=== PATIENT | female | born 1940 | race Caucasian/White ===

== ENCOUNTER 2018-01-08 13:45 | Inpatient (IN) | payer OTHER ==
[~2018-01-08] VITALS: Ht 152.4 cm; Wt 56.7 kg
[2018-01-08] MEDS ORDERED: NEURONTIN800 MG PO (15:15)
[2018-01-08] MEDS ORDERED: NIFE60TA3 PO (15:15)
[2018-01-08] MEDS ORDERED: XANAX1 MG PO (15:16)
[2018-01-08] MEDS ORDERED: TROMBONEX CAPS1 EACH PO (15:16)
[2018-01-08] MEDS ORDERED: CRESTOR10 MG PO (15:17)
[2018-01-08] MEDS ORDERED: ASA325 MG PO (15:17)
[2018-01-08] MEDS ORDERED: HYDROCHLOROTHIA25 MG PO (15:17)
[2018-01-08] MEDS ORDERED: PROTONIX40 MG PO (15:18)
[2018-01-08] MEDS ORDERED: PROLIA60 MG/1 ML (15:18)
[2018-01-20] MEDS ORDERED: DOCUSATE SODIU100 MG PO (09:31)
[2018-01-20] MEDS ORDERED: PERCOCET 5-3251 EACH PO (09:32)
[2018-01-20] MEDS ORDERED: XANAX1 MG PO (09:32)
== END 2018-01-20 13:07 | disposition home or self-care (01) | DRG 454 ==
LOC: O/R 01-19 04:40 → PED 01-19 04:40 → O/R 01-19 07:00 → PED 01-19 11:09 → O/R 01-19 13:45 → SURH 01-19 13:45 → PED 01-20 13:07
PROVIDERS: Orthopaedic Surgery Orthopaedic Surgery of the Spine
PROC: 0RG2071 Fusion of 2 or more Cervical Vertebral Joints with Autologous Tissue Substitute, Posterior Approach, Posterior Column, Open Approach (ICD-10-PCS; 2018-01-19)
PROC: 0RT30ZZ Resection of Cervical Vertebral Disc, Open Approach (ICD-10-PCS; 2018-01-19)
PROC: 07DS3ZZ Extraction of Vertebral Bone Marrow, Percutaneous Approach (ICD-10-PCS; 2018-01-19)
PROC: 0RG20A0 Fusion of 2 or more Cervical Vertebral Joints with Interbody Fusion Device, Anterior Approach, Anterior Column, Open Approach (ICD-10-PCS; principal; 2018-01-19 07:00)
DX: M50.021 Cervical disc disorder at C4-C5 level with myelopathy (principal); M47.12 Other spondylosis with myelopathy, cervical region; I10 Essential (primary) hypertension